=== PATIENT | female | born 1945 ===

== ENCOUNTER 2018-03-23 07:20 | Outpatient (CLI) | payer OTHER | END 2018-03-23 07:32 | disposition home or self-care (01) | LOC: SONOGRAMA 07:20 | DX: K82.8 Other specified diseases of gallbladder (principal) ==

== ENCOUNTER 2018-04-12 13:05 | Outpatient (CLI) | payer OTHER | END 2018-04-12 13:27 | disposition home or self-care (01) | LOC: SONOGRAMA 13:05 | DX: E04.2 Nontoxic multinodular goiter (principal) ==

== ENCOUNTER 2019-05-22 08:36 | Outpatient (CLI) | payer OTHER | END 2019-05-22 08:44 | disposition home or self-care (01) | LOC: SONOGRAMA 08:36 → MAMO-SONO 09:15 | DX: F34.89 Other specified persistent mood disorders (principal); F41.8 Other specified anxiety disorders; I11.9 Hypertensive heart disease without heart failure; F32.89 Other specified depressive episodes; M17.11 Unilateral primary osteoarthritis, right knee; M54.5 Low back pain; M79.7 Fibromyalgia; M81.0 Age-related osteoporosis without current pathological fracture; I70.0 Atherosclerosis of aorta; F32.0 Major depressive disorder, single episode, mild; N95.0 Postmenopausal bleeding; R31.21 Asymptomatic microscopic hematuria ==

== ENCOUNTER 2019-06-27 10:41 | Outpatient (CLI) | payer OTHER | END 2019-06-27 10:46 | disposition home or self-care (01) | LOC: LAB 10:41 | DX: M10.062 Idiopathic gout, left knee (principal) ==

== ENCOUNTER 2021-09-02 10:31 | Outpatient (CLI) | payer OTHER | END 2021-09-02 10:36 | disposition home or self-care (01) | LOC: RAD 10:31 | PROVIDERS: ATTEND Internal Medicine | DX: F39 Unspecified mood [affective] disorder (principal); F41.9 Anxiety disorder, unspecified; F32.9 Major depressive disorder, single episode, unspecified; M54.50 Low back pain, unspecified; M81.0 Age-related osteoporosis without current pathological fracture; I70.0 Atherosclerosis of aorta; F32.0 Major depressive disorder, single episode, mild; I10 Essential (primary) hypertension ==

== ENCOUNTER 2021-09-08 07:32 | Outpatient (CLI) | payer OTHER | END 2021-09-08 07:44 | disposition home or self-care (01) | LOC: SONOGRAMA 07:32 | PROVIDERS: ATTEND Internal Medicine | DX: R16.0 Hepatomegaly, not elsewhere classified (principal) ==

== ENCOUNTER 2021-12-30 09:54 | Outpatient (CLI) | payer OTHER | END 2021-12-30 09:56 | disposition home or self-care (01) | LOC: MRI 09:54 | PROVIDERS: ATTEND Physical Medicine & Rehabilitation | DX: M25.562 Pain in left knee (principal) | CPT/HCPCS: 73718 ==

== ENCOUNTER 2022-11-15 11:18 | Outpatient (CLI) | payer OTHER | END 2022-11-15 11:27 | disposition home or self-care (01) | LOC: RAD 11:18 | PROVIDERS: ATTEND Physical Medicine & Rehabilitation | DX: M25.571 Pain in right ankle and joints of right foot (principal); M79.671 Pain in right foot ==

== ENCOUNTER 2022-12-17 07:44 | Outpatient (CLI) | payer OTHER | END 2022-12-17 07:48 | disposition home or self-care (01) | LOC: SONOGRAMA 07:44 | PROVIDERS: ATTEND Physical Medicine & Rehabilitation | DX: M25.571 Pain in right ankle and joints of right foot (principal) ==

== ENCOUNTER 2023-08-03 12:31 | Outpatient (CLI) | payer OTHER | END 2023-08-03 12:32 | disposition home or self-care (01) | LOC: RAD 12:31 | PROVIDERS: ATTEND Internal Medicine Pulmonary Disease | DX: J45.20 Mild intermittent asthma, uncomplicated (principal) ==